=== PATIENT | male | born 1945 | race Caucasian/White ===

== ENCOUNTER 2019-04-12 14:23 | Inpatient (IN) | payer MEDICARE ==
[~2019-04-12] VITALS: Ht 177.8 cm; Wt 105.2 kg
--- NOTE | ~2019-04-12 | EKG ---
[place], [place] ELECTROCARDIOGRAM REPORT NAME: DAPHNE CHUNG UNIT #: [id number] ROOM: 419 DOCTOR: RODRIGO DRAFT REPORT BIRTHDATE: [birth year] [facility] Test Date: 2019-04-12 Test Time: 14:49:56 Pat Name: DAPHNE CHUNG Department: Room: 419 1 Gender: M Correctional Supervisor: : 1945 Requested By: PERLITA SAMANO Order Number: [id number] Reading MD: Perlita Samano MD Measurements Intervals [place] Rate: 78 P: -14 CA: 171 QRS: -69 QRSD: 94 T: 19 QT: 387 QTc: 441 Interpretive Statements Sinus rhythm Left axis deviation Abnormal R-wave progression, late transition Electronically Signed On 04-13-2019 4:59:52 PDT by Perlita Samano MD CM:EKGRPT:ELECTROCARDIOGRAM REPORT [id number] PERLITA SAMANO EPIPHANY DRAFT REPORT PERLITA SAMANO
--- NOTE | ~2019-04-12 | EKG ---
[place], [place] ELECTROCARDIOGRAM REPORT NAME: DAPHNE CHUNG UNIT #: [id number] ROOM: DOCTOR: EPIPHANY DRAFT REPORT BIRTHDATE: [address] [facility] Test Date: 2019-04-12 Test Time: 14:49:56 Pat Name: DAPHNE CHUNG Department: Patient ID: ELOH- Room: Gender: Consultant Teacher: : 1945 Requested By: MARI GUTIERREZ DNP Order Number: [id number] Reading MD: Measurements Intervals [place] Rate: 78 P: -14 PA: 171 QRS: -69 QRSD: 94 T: 19 QT: 387 QTc: 441 Interpretive Statements Sinus rhythm Left anterior fascicular block Abnormal R-wave progression, late transition Baseline wander in lead(s) V2 No previous ECG available for comparison CM:EKGRPT:ELECTROCARDIOGRAM REPORT [id number] MARI CROSSUNITED STATES AIR FOR[facility] D[facility]FT REPORT MARI GUTIERREZ DNP
[2019-04-12 14:25] VITALS: BP 135/97
[2019-04-12 15:12] LABS: BASO % 0.2 % (0.0-1.0); HEMATOCRIT 37.8 % (42.0-52.0); HEMOGLOBIN 12.9 g/dl (14.0-18.0); LYMPH % 8.1 % (27.0-41.0); MEAN CELL VOLUME 91.3 fl (80.0-94.0); MEAN CORPUSCULAR HGB 31.2 pg (27.0-31.0); MEAN CORPUSCULAR HGB CONC 34.1 g/dl (33.0-37.0); MEAN PLATELET VOLUME 10.3 fl (9.6-12.3); MONO # 1.1 10*3/uL (0.1-1.0); MONO % 8.7 % (3.0-9.0); NEUT # 10.5 10*3/uL (2.3-7.9); NEUT % 82.5 % (47.0-73.0); PLATELET COUNT AUTOMATED 173 10*3/uL (130-400); RED BLOOD COUNT 4.14 10*6/uL (4.50-5.90); RED CELL DISTRI WIDTH 13.7 % (0-14.5); WHITE BLOOD COUNT 12.8 10*3/uL (4.8-10.8)
[2019-04-12 15:24] LABS: ACT PARTIAL THROMBO TIME 24.5 SECONDS (20.0-32.1); INTERNATIONAL NORM RATIO 0.9 (2.0-3.5)
[2019-04-12 15:26] LABS: ALBUMIN 3.3 gm/dl (3.1-4.5); ALKALINE PHOSPHATASE 48 U/L (45-117); BUN 21 mg/dl (7-24); CHLORIDE 103 mmol/L (98-107); CREATININE 1.24 mg/dL (0.70-1.30); LIPASE 55 U/L (73-393); POTASSIUM 3.5 mmol/L (3.5-5.1); SGOT/AST 13 IU/L (3-35); SGPT/ALT 19 U/L (12-78); SODIUM 135 mmol/L (136-145); TOTAL PROTEIN 7.1 gm/dL (6.4-8.2); TROPONIN I < 0.015 ng/ml (<0.045)
[2019-04-12 15:41] LABS: BILIRUBIN NEGATIVE (NEGATIVE); BLOOD 1+ (NEGATIVE); CLARITY CLEAR (CLEAR); COLOR YELLOW (YELLOW); GLUCOSE 1+ (NEGATIVE); KETONE NEGATIVE (NEGATIVE); LEUKO ESTERASE TRACE (NEGATIVE); NITRITE POSITIVE (NEGATIVE); PH 5.5 (5.0-9.0); SPECIFIC GRAVITY 1.025 (1.005-1.030); UROBILINOGEN 0.2 E.U./dl (0.2-1.0)
[2019-04-12 16:11] LABS: BACTERIA 4+
[2019-04-12 16:12] LABS: WBC 51-100 wbc/hpf (0-5)
[2019-04-12 16:24] VITALS: BP 113/58
[2019-04-12 17:30] VITALS: BP 107/55
--- NOTE | 2019-04-12 17:30 | NUR ---
A 73, admitted to , under the services of DESTINEE Del Cid DO with a diagnosis of UTI,GENERALIZED WEAKNESS. Chief complaint is FELL AT HOME. NAUSEA/VOMITING. Patient arrived via bed from ER. Monitor applied. Initial assessment completed. Vital signs taken and recorded. DESTINEE DEL CID DO notified of admission to the unit. Orders received. See assessment for past medical history, medications and allergies. Patient and/or family oriented to unit. [address] visitation policy reviewed. Clothing/patient valuable form completed. DAVID PHIPPS R
[2019-04-12] MEDS ORDERED: VITAMIN D32000 UNI1 PO (17:57)
[2019-04-12] MEDS ORDERED: ALLERGY RELIEF25 MG PO (17:58)
[2019-04-12] MEDS ORDERED: NEURONTIN300 MG PO (17:58)
[2019-04-12] MEDS ORDERED: SIMVASTATIN40 MG PO (17:59)
[2019-04-12] MEDS ORDERED: OMEPRAZOLE20 M2 PO (18:00)
[2019-04-12] MEDS ORDERED: ROXICODONE5 MG PO (18:00)
[2019-04-12] MEDS ORDERED: ASPIRIN ADULT L81 M1 PO (18:00)
[2019-04-12] MEDS ORDERED: ZIAC 5-6.25 MG1 EACH PO (18:02)
--- NOTE | 2019-04-12 18:44 | NUR ---
DR. CLARKE CONTACTED AT THIS TIME REGARDING MED REC. SHE WILL PASS MESSAGE ALONG TO DR. KIRKLAND.
[2019-04-12 20:00] VITALS: BP 107/51
[2019-04-13] VITALS: BP 139/60
[2019-04-13 06:09] LABS: BASO % 0.2 % (0.0-1.0); EOS % 0.1 % (1.0-4.0); HEMATOCRIT 33.3 % (42.0-52.0); LYMPH # 1.5 10*3/uL (1.3-4.4); LYMPH % 11.7 % (27.0-41.0); MEAN CORPUSCULAR HGB 30.7 pg (27.0-31.0); MEAN PLATELET VOLUME 10.5 fl (9.6-12.3); MONO # 1.5 10*3/uL (0.1-1.0); MONO % 11.5 % (3.0-9.0); NEUT % 76.1 % (47.0-73.0); PLATELET COUNT AUTOMATED 143 10*3/uL (130-400); RED BLOOD COUNT 3.58 10*6/uL (4.50-5.90); RED CELL DISTRI WIDTH 14.2 % (0-14.5); WHITE BLOOD COUNT 13.1 10*3/uL (4.8-10.8)
[2019-04-13 06:36] LABS: BUN 20 mg/dl (7-24); CHLORIDE 107 mmol/L (98-107); CHOLESTEROL 89 mg/dL (<200); POTASSIUM 3.3 mmol/L (3.5-5.1); SODIUM 140 mmol/L (136-145); TRIGLYCERIDES 90 mg/dl (<150); VLDL CHOLESTEROL 18 mg/dL (6-40)
[2019-04-13 06:43] LABS: FREE T4 0.85 ng/dl (0.76-1.46); HDL CHOLESTEROL 34 mg/dl (40-60); LDL CHOLESTEROL 37 mg/dL (9-159); THYROID STIM HORMONE (HS) 0.721 uIU/ml (0.358-4.75)
[2019-04-13 08:00] VITALS: BP 104/58
[2019-04-13 08:12] LABS: VITAMIN D, 25-HYDROXY 27.2 ng/mL (30-100)
--- NOTE | 2019-04-13 09:00 | NUR ---
Mailroom Associate in to talk to patient. Patient states lives at home with . There are few steps in the home. Physician: fransisca teixeira [facility] [place] [facility] none Patient's level of ADLs: INDEPENDENT Patient has working utilities: all working DME: none Follow-up physician's appointment after d/c: will be made by hospitalist nurse director upon discharge Does patient want to access PORTAL?: no Discharge plan discussed with patient, he states he lives at home with , he is normally independent in adls and ambulation and has an isolated incident of falling, he drives, he states he will return home when medically stable, discussed with him VNA and he declines any services at this time, case management will follow. CHIN MONTERO
[2019-04-13 12:00] VITALS: BP 107/49
--- NOTE | 2019-04-13 12:57 | NUR ---
Nursing screen and occupational therapy referral received. Thank you. Cassidy Urena OTR/L
--- NOTE | 2019-04-13 13:44 | NUR ---
Occupational Therapy evaluation completed on 4 with full eval to follow. Precautions include occasional cane use, low complexity level 91054. Patient is independent in ADLs and functional mobility, his is present and reports no concerns other than patient's urine incontinency/UTI. Recommend no further OT and discharge home w/ at plof independence. Thank you. Cassidy Urena OTR/L
--- NOTE | 2019-04-13 13:44 | NUR ---
Occupational Therapy evaluation completed on 4 with full eval to follow. Precautions include low complexity level 86259,recent urine incontinency. Recommend no further OT at this time and return home w/ upon d/c. Thank you. Cassidy Urena OTR/l
--- NOTE | 2019-04-13 13:44 | NUR ---
PHYSICAL THERAPY Physical therapy evaluation only completed, 4E. Low complexity PT evaluation per chart review and evaluation (80283). Patient is independent in room and performed TUG testing in 12 seconds without an assistive device. No PT needs at this time. Recommend return home at discharge. Thank you. Licha Saldana,PT,DPT
--- NOTE | 2019-04-13 14:42 | NUR ---
PHYSICAL THERAPY Nursing screen received and chart reviewed. Physical therapy referral received and evaluation completed this date. Thank you. Licha Saldana,PT,DPT
[2019-04-13 16:00] VITALS: BP 110/48
[2019-04-13 20:00] VITALS: BP 129/55
[2019-04-14] VITALS: BP 135/58
[2019-04-14 06:05] LABS: BUN 16 mg/dl (7-24); CHLORIDE 107 mmol/L (98-107); POTASSIUM 3.6 mmol/L (3.5-5.1); SODIUM 138 mmol/L (136-145)
[2019-04-14 06:21] LABS: BASO % 0.2 % (0.0-1.0); EOS % 0.3 % (1.0-4.0); HEMATOCRIT 33.5 % (42.0-52.0); LYMPH # 1.1 10*3/uL (1.3-4.4); LYMPH % 12.5 % (27.0-41.0); MEAN CELL VOLUME 93.8 fl (80.0-94.0); MEAN CORPUSCULAR HGB 30.8 pg (27.0-31.0); MEAN CORPUSCULAR HGB CONC 32.8 g/dl (33.0-37.0); MONO # 0.8 10*3/uL (0.1-1.0); MONO % 8.9 % (3.0-9.0); NEUT # 6.9 10*3/uL (2.3-7.9); NEUT % 77.8 % (47.0-73.0); PLATELET COUNT AUTOMATED 132 10*3/uL (130-400); RED BLOOD COUNT 3.57 10*6/uL (4.50-5.90); RED CELL DISTRI WIDTH 14.1 % (0-14.5); WHITE BLOOD COUNT 8.9 10*3/uL (4.8-10.8)
--- NOTE | 2019-04-14 07:19 | NUR ---
DR. QUESADA NOTIFIED OF BLOOD CULTURE ON 04/12 IS E. COLI.
[2019-04-14 08:00] VITALS: BP 139/62
--- NOTE | 2019-04-14 09:00 | NUR ---
case management visits with patient, he states he will be returning home when medically stable and denies any home needs
[2019-04-14 12:00] VITALS: BP 115/57
[2019-04-14] MEDS ORDERED: LEVOFLOXACIN500 MG PO (13:52)
[2019-04-14 16:00] VITALS: BP 150/64
--- NOTE | 2019-04-14 16:00 | NUR ---
DRS AWARE THAT PER INFECTIOUS DISEASE, PT CAN GO HOME - PER , PT TO STAY 1 MORE NIGHT FOR IV ANTIBIOTICS.
[2019-04-14 20:00] VITALS: BP 145/73
--- NOTE | 2019-04-14 21:28 | NUR ---
PATIENT MEDICATED WITH TYLENOL FOR TEMP OF 100.3. WILL MONITOR FOR EFFECTIVENESS.
--- NOTE | 2019-04-14 23:00 | NUR ---
TYLENOL EFFECTIVE. TEMP 98.4.
[2019-04-15] VITALS: BP 140/68
[2019-04-15 08:00] VITALS: BP 146/61
--- NOTE | 2019-04-15 08:30 | NUR ---
Patient resting quietly with no c/o discomfort. Respirations easy and regular. Vital signs stable. No overt distress. CRISTINA STEPHENSON R
--- NOTE | 2019-04-15 09:00 | NUR ---
case management visits with patient, he will return home when medically stable and denies any home needs
[2019-04-15] MEDS ORDERED: PHARMASSURE V500 MCG PO (10:44)
[2019-04-15] MEDS ORDERED: ZOCOR20 MG PO (10:48)
--- NOTE | 2019-04-15 11:53 | NUR ---
Discharge instructions reviewed with patient/family. Patient receptive and verbalizes understanding. Follow-up care arranged. Written instructions given to patient/family. CRISTINA STEPHENSON
== END 2019-04-15 11:53 | disposition home or self-care (01) | DRG 871 ==
LOC: ED 14:23 → EDBD 14:43 → 4E 16:51 → EDHOLD 16:51 → 4E 17:00
PROVIDERS: Family Medicine; Internal Medicine; Nurse Practitioner Family; ADMIT Internal Medicine
DX: A41.51 Sepsis due to Escherichia coli [E. coli] (principal); J18.9 Pneumonia, unspecified organism; E87.2 Acidosis; N30.01 Acute cystitis with hematuria; R65.20 Severe sepsis without septic shock; E80.6 Other disorders of bilirubin metabolism; D64.9 Anemia, unspecified; R73.9 Hyperglycemia, unspecified; E78.5 Hyperlipidemia, unspecified; K21.9 Gastro-esophageal reflux disease without esophagitis; E87.6 Hypokalemia; M79.2 Neuralgia and neuritis, unspecified; Z85.038 Personal history of other malignant neoplasm of large intestine; Z90.49 Acquired absence of other specified parts of digestive tract; Z87.891 Personal history of nicotine dependence; Z68.33 Body mass index [BMI] 33.0-33.9, adult; Z79.899 Other long term (current) drug therapy; Z82.49 Family history of ischemic heart disease and other diseases of the circulatory system